=== PATIENT | male | born 1995 | race Asian ===

== ENCOUNTER 2018-10-02 13:15 | Outpatient (CLI) | payer OTHER | END 2018-10-02 13:20 | disposition short-term general hospital (02) | LOC: AMB 13:15 | DX: R06.03 Acute respiratory distress (principal); X30.XXXA Exposure to excessive natural heat, initial encounter; Y93.9 Activity, unspecified; Y92.89 Other specified places as the place of occurrence of the external cause | CPT/HCPCS: A0425; A0427 ==